=== PATIENT | male | born 2005 | race Hispanic/Latino ===

== ENCOUNTER 2025-01-13 18:45 | Emergency (ER) | payer OTHER ==
[~2025-01-13] VITALS: Ht 182.9 cm; Wt 89.5 kg
[~2025-01-13 18:45] MED LIST: ALBU2.5V10 NEB; MUCI1TAB16 PO; NEBU1EAC80 MC
[2025-01-13 18:47] VITALS: BP 141/71; TEMP 97.5; O2SAT 99
== END 2025-01-13 20:27 | disposition home or self-care (01) ==
LOC: M ED 18:45
DX: S83.92XA Sprain of unspecified site of left knee, initial encounter (principal); Y92.9 Unspecified place or not applicable; Y93.9 Activity, unspecified; Y99.0 Civilian activity done for income or pay; W01.0XXA Fall on same level from slipping, tripping and stumbling without subsequent striking against object, initial encounter; Z79.51 Long term (current) use of inhaled steroids; Z79.899 Other long term (current) drug therapy